=== PATIENT | female | born 1985 | race Hispanic/Latino ===

== ENCOUNTER 2017-12-26 17:27 | Emergency (ER) | payer OTHER ==
[2017-12-26 17:54] VITALS: BP 118/82; PULSE 78; RESP 16; TEMP 97.9; O2SAT 100
--- NOTE | 2017-12-26 20:06 | ED PDOC ---
HPI: Abdomen Time Seen by Provider: 12/26/17 18:48 Chief Complaint (Nursing): Abdominal Pain Chief Complaint (Provider): LEft sided pelvic pain Past Medical History Vital Signs: Last Vital Signs Temp 97.9 F 12/26/17 17:51 Pulse 78 12/26/17 17:51 Resp 16 12/26/17 17:51 BP 118/82 12/26/17 17:51 Pulse Ox 100 12/26/17 17:51 - Surgical History Surgical History: Tonsillectomy - Allergies Allergies/Adverse Reactions: Allergies Allergy/AdvReac Type Severity Reaction Status Date / Time No Known Allergies Allergy Verified 12/26/17 17:54 - ECG O2 Sat by Pulse Oximetry: 100 Disposition - Clinical Impression Clinical Impression: Pelvic pain - Patient ED Disposition Is Patient to be Admitted: No - Disposition Disposition: Transfer of Care Disposition Time: 20:00 Condition: STABLE
[2017-12-26 20:08] LABS: BASO # 0.1 K/uL (0.0-0.2); BASO % 1.2 % (0.0-2.0); EOS % 0.3 % (0.0-4.0); HEMOGLOBIN 13.8 g/dL (12.0-16.0); LYMPH # 1.1 K/uL (1.0-4.3); LYMPH % 13.7 % (20.0-40.0); MEAN CELL VOLUME 93.9 fl (81.0-99.0); MEAN CORPUSCULAR HEMOGLOBIN 31.5 pg (27.0-31.0); MEAN CORPUSCULAR HGB CONC 33.5 g/dL (33.0-37.0); MEAN PLATELET VOLUME 9.6 fl (7.2-11.7); MONO # 0.5 K/uL (0.0-0.8); MONO % 5.5 % (0.0-10.0); NEUT # 6.6 K/uL (1.8-7.0); NEUT % 79.3 % (50.0-75.0); RBC 4.38 Mil/uL (3.80-5.20); RED CELL DISTRIBUTION WIDTH 12.6 % (11.5-14.5); WHITE BLOOD COUNT 8.4 K/uL (4.8-10.8)
[2017-12-26 20:16] LABS: ALB/GLOB RATIO 1.5 (1.0-2.1); ALBUMIN 4.6 g/dL (3.5-5.0); ALT/SGPT 24 U/L (9-52); AST/SGOT 19 U/L (14-36); BLOOD UREA NITROGEN 10 mg/dl (7-17); CALCIUM 9.5 mg/dL (8.4-10.2); GFR AFRICAN-AMERICAN > 60; GFR NON-AFRICAN AMERICAN > 60
[2017-12-26 20:32] LABS: SQUAMOUS EPITHIAL < 1 /hpf (0-5); URINE BACTERIA RARE (<OCC); URINE BILIRUBIN NEGATIVE (NEGATIVE); URINE BLOOD NEGATIVE (NEGATIVE); URINE CLARITY CLEAR (Clear); URINE COLOR STRAW (YELLOW); URINE GLUCOSE (UA) NEG (Normal); URINE LEUKOCYTE ESTERASE NEG Leu/uL (Negative); URINE NITRATE NEGATIVE (NEGATIVE); URINE PROTEIN NEGATIVE (NEGATIVE); URINE UROBILINOGEN 0.2-1.0 mg/dL (0.2-1.0)
--- NOTE | 2017-12-26 20:33 | ED PDOC ---
- Laboratory Results Result Diagrams: 12/26/17 20:00 12/26/17 20:00 Urine POC: Negative - ECG O2 Sat by Pulse Oximetry: 100 (RA) Pulse Ox Interpretation: Normal Medical Decision Making Medical Decision Making: Case endorsed to Osvaldo JAMES at 1999 due to shift change. Pertinent details reviewed. Patient pending lab results and TV ultrasound for further disposition of left sided pelvic pain. 2044 Patient in ultrasound. 2199 Patient returned from ultrasound without incident. Patient reports improvement of symptoms, denies any additional complaints. On exam, patient remains AAOx3, in no acute distress. Lungs clear to auscultation, cardiac RRR, abdomen soft, non-tender, repeat neuro exam shows no focal findings. Awaiting U/S results. 2299 U/S results below. EXAM: US Pelvis, Transvaginal CLINICAL HISTORY: 32 years old, female; Pain; Pelvic pain; Additional info: Left sided pelvic pain TECHNIQUE: Real-time transvaginal pelvic ultrasound (complete) with image documentation. Transvaginal imaging was used for better evaluation of the endometrium and adnexa. COMPARISON: No relevant prior studies available. FINDINGS: Uterus/cervix: Unremarkable. Normal endometrial stripe thickness is 4.6 mm. No myometrial mass. Uterus measures 7.8 cm x 3 cm x 3.8 cm. Right ovary: Unremarkable. No mass. Normal blood flow. 3.2 cm x 1.3 cm x 2.8 cm Left ovary: . No mass. Normal blood flow. A simple cyst is seen 2.1 cm x 1.5 cm x 2 cm. The LEFT ovary measures 3.7 cm x 1.6 cm x 3.5 cm Free fluid: There is moderate free fluid in the cul-de-sac. IMPRESSION: 1. LEFT ovary simple cysts. 2. Moderate volume free fluid in the cul-de-sac. 3. Negative uterus and endometrium. 4. Negative RIGHT ovary Thank you for allowing us to participate in the care of your patient. Dictated and Authenticated by: Tanmay Isaac MD 12/26/2017 10:39 PM Eastern Time ([place] & [place]) Diagnostic results d/w the patient in great detail. Diagnosis of ovarian cysts, pelvic pain d/w the patient. Based on history, exam and diagnostic results, plan will be for outpatient follow up. Patient instructed to follow-up with pmd / referral provided / the clinic in 1-2 days without fail. Advised to take Aleve as needed for discomfort. Return to the emergency room at any time for any new or worsening symptoms. Patient states he/she fully agrees with and understands discharge instructions. States that he/she agrees with the plan and disposition. Verbalized and repeated discharge instructions and plan. I have given the patient opportunity to ask any additional questions. Disposition Counseled Patient/Family Regarding: Studies Performed, Diagnosis, Need For Followup - Clinical Impression Clinical Impression: Pelvic pain, Ovarian cyst - POA Present On Arrival: None - Disposition [facility] Disposition: Routine/Home Disposition Time: 23:20 Condition: STABLE Instructions: Ovarian Cysts, Acute Pelvic Pain (DC) Forms: [facility] (Georgian) Print Language: YI
--- NOTE | 2017-12-27 10:30 | US ---
HISTORY: Left-sided pelvic pain COMPARISON: None available. TECHNIQUE: Transvaginal pelvic ultrasound was. FINDINGS: UTERUS: Measures 7.9 x 3.0 x 3.9 cm. Anteverted, normal in size and appearance. No fibroid or other mass lesion seen. ENDOMETRIUM: Measures 5.0 mm in diameter. Normal in appearance. CERVIX: No cervical abnormality identified. RIGHT OVARY: Measures 3.3 x 1.3 x 2.9 cm. No solid mass. Normal flow. LEFT OVARY: Measures 3.7 x 1.7 x 3.6 cm. No solid mass. Normal flow. There is a 2.1 x 1.6 x 2.1 simple cyst. FREE FLUID: There is small amount of free fluid in the cul de sac. OTHER FINDINGS: None. IMPRESSION: 2.1 cm simple cyst in the left ovary. No evidence of torsion. A preliminary report was provided by [facility].
== END 2017-12-27 | disposition home or self-care (01) ==
LOC: H.ER 17:27
DX: N83.202 Unspecified ovarian cyst, left side (principal)